=== PATIENT | female | born 1965 | race Caucasian/White ===

== ENCOUNTER 2017-05-24 12:18 | Emergency (ER) | payer OTHER ==
[~2017-05-24] VITALS: Ht 154.9 cm; Wt 163.3 kg
== END 2017-05-24 12:33 ==
LOC: ER 12:18
DX: Z48.03 Encounter for change or removal of drains (principal); Z53.8 Procedure and treatment not carried out for other reasons; I12.0 Hypertensive chronic kidney disease with stage 5 chronic kidney disease or end stage renal disease; N18.6 End stage renal disease; Z99.2 Dependence on renal dialysis; C85.90 Non-Hodgkin lymphoma, unspecified, unspecified site